=== PATIENT | female | born 1965 | race Caucasian/White ===

== ENCOUNTER → 2017-02-22 | Outpatient (CLI) | payer OTHER ==
[~2017-02-22] MED LIST: ASPI81 PO; ASPI81CH37 CHEW; FLON0.053; FLUT1SPR5 EACH NARE; ISOS30 PO; METO25 PO; METO25TA3 PO; MULTTAB26 PO; NITR0.4S SL; PANT20 PO; PRAV20 PO; PRAV40TA2 PO; PROT40TA PO
== END ==
LOC: CPRE 09:29
PROVIDERS: ATTEND Surgery
DX: Z01.812 Encounter for preprocedural laboratory examination (principal)

== ENCOUNTER → 2017-03-07 | Day surgery (SDC) | payer OTHER ==
[~2017-03-07] VITALS: Ht 165.1 cm; Wt 82.7 kg
[~2017-03-07] MED LIST changes: +ACETAMINOPHEN/HYDROcodone 325 MG/5 MG TAB PO PRN; -ASPI81 PO; +CHLORHEXIDINE GLUCONATE 2 % 1 PACK (2 CLOTHS) TOPICAL PRN; +DEXAMETHASONE SOD PHOS 4 MG/ML VIAL ONE; +DO NOT ADM ANY ANTICOAGULANT DRUGS PRN; +FAMOTIDINE 20 MG/2 ML VIAL ONE; -FLON0.053; +INSULIN HUMAN REGULAR 1,000 UNITS/10 ML VIAL SQ PRN; -ISOS30 PO; +LACTATED RINGER'S 1000 ML INJ 1,000 ML IV ONE; +LACTATED RINGER'S 1000 ML IV PRN; +MEPERIDINE HCL 50 MG/ML VIAL IM PRN; -METO25 PO; +METOPROLOL TARTRATE 25 MG TAB PO PRN; +MIDAZOLAM HCL 2 MG/2 ML VIAL ONE; +NEOSTIGMINE 3 MG/3 ML SYR IV ONE; +ONDANSETRON HCL 4 MG/2 ML VIAL IV PUSH ONE; +ONDANSETRON ODT 4 MG TAB PO PRN; +PHENYLEPH/NS 1000 MCG/10 ML SYR IV ONE; +POVIDONE IODINE 5% (ANTISEPSIS KIT) 4 APPLICATIONS EACH NARE PRN; +POVIDONE IODINE 7.5% SCRUB 118 ML BOTTLE TOPICAL ONE; -PRAV20 PO; +PROPOFOL 200 MG/20 ML AMP IV ONE; -PROT40TA PO; +SODIUM CHLORID 0.9% 500 ML IV PRN; +SODIUM CHLORIDE 0.9% INJ 100 ML ONE; +ceFAZolin 1,000 MG/NS 100 ML IV ONE; +ceFAZolin INJ 1,000 MG VIAL ONE; +ePHEDrine/NS 25 MG/5 ML SYR IV ONE; +fentaNYL CITRATE 250 MCG/5 ML AMP ONE
[2017-03-07 06:30] VITALS: BP 96/62; PULSE 49; RESP 18; TEMP 98; O2SAT 98
--- NOTE | 2017-03-07 08:28 | EKG ---
Date Performed: 03/07/2017 Time Performed: 07:29:24 PTAGE: 51 years EKG: SINUS BRADYCARDIA BORDERLINE ECG PREVIOUS TRACING : 02/23/2016 15.22 No significant change from previous tracing noted. DOCTOR: Christofer Felix Interpretating Date/Time 03/07/2017 08:26:29
--- NOTE | 2017-03-07 09:49 | HHI.PR ---
Immediate Post Op Note Procedure Date: Mar 07, 2017 Pre Op Diagnosis: impingement Left shoulder syndrome Post Op Diagnosis: Left shoulder pain; impingement Left shoulder rotator cuff tear Surgeon: Edwin Martinez MD Rn Pediatric(s): Sonya BRAVO Procedure: Acromioplasty Left shoulder; release left shoulder impingement Left shoulder rotator cuff repair Specimen(s) removed: none Estimated blood loss: 50cc Anesthesia: General Drains: None Tourniquet time (min at mmHg) none Patient to: PACU Patient Condition: Good Implant/Devices: SEE IMPLANT LOG (if applicable) Date/Time of Procedure: SEE SURGICAL CARE RECORD Sonya Cedeno Mar 07, 2017 09:49
[2017-03-07 11:22] VITALS: BP 114/58; PULSE 70; RESP 18; TEMP 97.5; O2SAT 97
--- NOTE | 2017-03-07 15:56 | MP ---
cc: Santana VIVAS M.D. DATE OF SURGERY: 03/07/2017. PREOPERATIVE DIAGNOSIS: Impingement syndrome, left shoulder. POSTOPERATIVE DIAGNOSIS: Impingement syndrome, left shoulder with torn supraspinatus tendon of the rotator cuff. OPERATIVE PROCEDURE PERFORMED: Rotator cuff repair left shoulder with acromioplasty and use of a 5.5 Multifix anchor with Ultratape. SURGEON: Santana Vivas MD. CERTIFIED EMERGENCY VEHICLE TECHNICIAN: SHELLY Murillo. ANESTHESIA: General intubation and block. DESCRIPTION OF THE PROCEDURE IN DETAIL: The patient was brought to the operating room and placed on the operating table in supine position. After successful induction of general anesthesia the patient was placed in beach chair position. The left shoulder and arm were prepped and draped in the usual manner. An anterior incision was then made from the acromion along the anterior head of the humerus 2 inches in length staying lateral to the coracoid process and carried down through subcutaneous tissue through a deltoid splitting incision to expose the bursa over the rotator cuff which was found to be inflamed and removed by sharp dissection to expose the rotator cuff. The rotator cuff was found to have a tear through the supraspinatus complete with slight retraction and this was then repaired using the 5.5 Multifix anchor and Ultratape by a knotless repair using the [place] and NephShutter Guardian equipment to pass the suture and using the 5.5 anchor into the bone attached to the suture and into the suture clip. Excellent repair appreciated with full range of motion. Impingement noted on the undersurface of the acromion and removed using curved osteotomes and removed with a rasp. Full range of motion of the shoulder was then appreciated with no instability. The rest of the shoulder was found to be intact. The wound was irrigated copiously with lactated Ringers solution and excess fluid was removed. The deltoid was approximated with running #1 Vicryl suture, subcutaneous tissue approximated using interrupted and running 2-0 and 4-0 Monocryl sutures, Steri-Strips, a DuoDerm dressing and sling and swathe. The estimated blood loss was 50 cc. Sponge and suture counts were correct. The patient tolerated the procedure well and left the operating room in satisfactory condition. NOTE: SHELLY Murillo, was present during the entire procedure to include patient positioning and the procedure. The medical necessity of a nurse practitioner and orthopedic physician assistant was indicated in this case due to the surgical complexity of the case itself. During the surgical case, the order entry technician was working at the back table while my licensed occupational therapy assistant and MACHINE MARKER were directly assisting me. J. MD FREDIS Martinez/JEFF /9:31 AM /3:47 PM
== END | disposition home or self-care (01) ==
LOC: HSDC 05:20
PROVIDERS: ATTEND Surgery
DX: M75.42 Impingement syndrome of left shoulder (principal); M75.102 Unspecified rotator cuff tear or rupture of left shoulder, not specified as traumatic; R00.1 Bradycardia, unspecified
CPT/HCPCS: 01610; 01630; 23130; 23410; 93005; C1713; J0690; J1100; J2250; J2370; J2405; J2710; J3010; J7120

== ENCOUNTER → 2017-10-31 | Day surgery (SDC) | payer OTHER ==
[~2017-10-31] VITALS: Ht 165.1 cm; Wt 85.0 kg
[~2017-10-31] MED LIST changes: -ACETAMINOPHEN/HYDROcodone 325 MG/5 MG TAB PO PRN; -ASPI81CH37 CHEW; +ASPI81CH6 CHEW; +BUPIVACAINE HCL PF 0.5% 30 ML VIAL ONE; +CEPH-460 PO; -DEXAMETHASONE SOD PHOS 4 MG/ML VIAL ONE; -DO NOT ADM ANY ANTICOAGULANT DRUGS PRN; +HYDR-3288 PO; -INSULIN HUMAN REGULAR 1,000 UNITS/10 ML VIAL SQ PRN; -LACTATED RINGER'S 1000 ML INJ 1,000 ML IV ONE; +LIDOCAINE HCL 1% PF 30 ML VIAL ONE; +LIDOCAINE HCL 2% 50 ML VIAL ONE; -MEPERIDINE HCL 50 MG/ML VIAL IM PRN; +NEOMYCIN/POLYMYXIN 1 ML G.U. IRRIGANT ONE; -NEOSTIGMINE 3 MG/3 ML SYR IV ONE; -ONDANSETRON HCL 4 MG/2 ML VIAL IV PUSH ONE; -ONDANSETRON ODT 4 MG TAB PO PRN; -PHENYLEPH/NS 1000 MCG/10 ML SYR IV ONE; -POVIDONE IODINE 7.5% SCRUB 118 ML BOTTLE TOPICAL ONE; -PROPOFOL 200 MG/20 ML AMP IV ONE; -SODIUM CHLORID 0.9% 500 ML IV PRN; -SODIUM CHLORIDE 0.9% INJ 100 ML ONE; -ceFAZolin 1,000 MG/NS 100 ML IV ONE; +ceFAZolin 1,000 MG/NS 100 ML IV SCH; -ceFAZolin INJ 1,000 MG VIAL ONE; -ePHEDrine/NS 25 MG/5 ML SYR IV ONE; -fentaNYL CITRATE 250 MCG/5 ML AMP ONE
[2017-10-31 07:31] LABS: HEMATOCRIT 43.2 % (35.0-46.0); HEMOGLOBIN 14.1 GM/DL (11.6-15.3); MEAN CELL VOLUME 90.4 FL (80.0-100.0); MEAN CORPUSCULAR HEMOGLOBIN 29.5 PG (27.0-34.0); MEAN CORPUSCULAR HGB CONC 32.7 % (32.0-36.0); MEAN PLATELET VOLUME 9.6 FL (7.0-11.0); PLATELET COUNT 202 TH/MM3 (150-450); RED BLOOD COUNT 4.78 MIL/MM3 (4.00-5.30); RED CELL DISTRIBUTION WIDTH 12.4 % (11.6-17.2); WHITE BLOOD COUNT 4.9 TH/MM3 (4.0-11.0)
[2017-10-31 09:35] VITALS: TEMP 97.5
--- NOTE | 2017-10-31 10:03 | MP ---
cc: Radames Jara MD DATE OF OPERATION: 10/31/2017 PREOPERATIVE DIAGNOSIS: Right middle finger mucous cyst. POSTOPERATIVE DIAGNOSIS: Right middle finger mucous cyst. PROCEDURE: Right middle finger mucous cyst excision. SURGEON: Radames Jara III, MD PROCEDURE: The patient was brought to the operating room, placed supine on the operating room table. After the correct site and side of surgery were verified by members of each time multiple times including the patient and myself and after adequate preoperative markings and proper written consent was verified by everyone and after adequate preoperative time out was performed to everyone's satisfaction and after adequate IV anesthesia had been achieved, the right upper extremity was prepped and draped in traditional sterile surgical fashion. A 50/50 mixture of 2% plain lidocaine and 0.5% plain Marcaine was infiltrated in the skin and subcutaneous tissue on the dorsal aspect of the middle finger as well as on the radial side at the metacarpal level and the second web space to provide for digital block. The two smallest fingers from the size 6 sterile glove were used as finger tourniquet which was in place for approximately 14 minutes. A T-shaped incision was made on the dorsoradial aspect of the DIP joint, carried down through the skin and subcutaneous tissue. Blunt dissection the skin from the extensor tendon and elevated the mucous cyst. The inflamed area of the extensor tendon was easily identified and was excised. Inflamed osteophyte was identified and this was debrided down to smooth surface. The inflamed tissue deep to the mucous cyst itself was excised to healthy edges. Thorough irrigation was performed with 1 liter's worth of saline for irrigation. The skin edges were then reapproximated using interrupted and running 5-0 nylon sutures. The existing defect in the skin was loosely closed. The hand and arm were thoroughly cleansed and dried with Betadine, Adaptic dressing applied to the wound, followed by a bulky soft dressing. The finger was dressed in the usual fashion. The tourniquet was released and the finger and the tip became immediately soft pink and warm and had brisk capillary refill of less than 2 seconds. The patient was awakened from anesthesia and transported to the post-anesthesia care unit awake and in stable condition at the end of the case. Sponge, needle and instrument counts were correct at the end of the case as reported by the nurses in the room. Radames MD TAYLER Rose , 09:43 AM , 10:02 AM
[2017-10-31 10:15] VITALS: BP 105/54; PULSE 61; RESP 16; O2SAT 100
== END | disposition home or self-care (01) ==
LOC: PHSDC 06:13
PROVIDERS: ATTEND Orthopaedic Surgery Hand Surgery
DX: M67.843 Other specified disorders of tendon, right hand (principal); Z01.818 Encounter for other preprocedural examination
CPT/HCPCS: 01810; 26160; 36415; 85027; J0690; J2250; J3010; J7120